=== PATIENT | female | born 1995 | race Caucasian/White ===

== ENCOUNTER 2020-09-25 16:15 | Emergency (ER) | payer SELFPAY ==
[~2020-09-25] VITALS: Ht 170.2 cm; Wt 70.0 kg
[2020-09-25 18:48] VITALS: BP 130/88
[2020-09-25] MEDS ORDERED: IBUPROFEN 800 MG TABLET ONE (18:50)
[2020-09-25] MEDS ORDERED: IBUPROFEN 200 MG TABLET PO ONE (19:00)
--- NOTE | 2020-09-25 20:16 | NUR ---
DAVID WRAP, CRUTCH FIT AND DEMO. BY EMT/MEDIC.
== END 2020-09-25 20:19 | disposition home or self-care (01) ==
LOC: ED 20:13
DX: S90.31XA Contusion of right foot, initial encounter (principal); R05 Cough; M79.10 Myalgia, unspecified site; X58.XXXA Exposure to other specified factors, initial encounter; Y93.89 Activity, other specified; Y92.89 Other specified places as the place of occurrence of the external cause; Y99.8 Other external cause status
CPT/HCPCS: 99283